=== PATIENT | male | born 1955 | race Caucasian/White ===

== ENCOUNTER → 2017-07-16 | Outpatient (CLI) | payer OTHER ==
--- NOTE | 2017-07-17 09:12 | RADIOLOGY REPORT (SQ) ---
EXAM DESCRIPTION: MRI LUMBAR SPINE WITHOUT COMPLETED DATE/TIME: 07/16/2017 6:23 pm REASON FOR STUDY: LUMBAGO WITH SCIATICA, RIGHT SIDE M54.41 LUMBAGO WITH SCIATICA, RIGHT SIDE COMPARISON: None. TECHNIQUE: Sagittal and Axial imaging includes T1, T2, STIR and gradient echo sequences. Coronal T2/ HASTE imaging. LIMITATIONS: None. FINDINGS: VISUALIZED UPPER ABDOMEN: Limited evaluation. No acute or suspicious findings suggested. SEGMENTATION: No transitional anatomy. The lowest well-developed disc space is labeled L5-S1. ALIGNMENT: Anatomic. VERTEBRAE: Mild 25% subacute upper endplate compression of L1, with edema paralleling the upper endpl ate. BONE MARROW: No marrow replacement process worrisome for metastatic disease. DISC SIGNAL: Diffuse decreased T2 weighted intervertebral disc signal. Disc space loss of height at L3-4 POSTERIOR ELEMENTS: Generally intact. No pars defect evident. HARDWARE: None in the spine. CORD AND CONUS: Normal in size and signal intensity. Conus at the L1 level. SOFT TISSUES: No aortic aneurysm seen. No bulky retroperitoneal adenopathy or mass. No paraspinal mas s or fluid. T12-L1: No central or foraminal stenosis L1-L2: No central or foraminal stenosis. Mild bilateral facet hypertrophy. L2-L3: Mild posterior disc bulging, moderate bilateral facet and ligament hypertrophy. No central st enosis. Mild bilateral inferior foraminal narrowing without definite exiting L2 nerve root impingeme nt. L3-L4: Mild central canal stenosis results from broad diffuse disc bulge and bulky bilateral facet an d ligament hypertrophy. This is best shown on axial T2 image 24. There is moderate right and mild l eft foraminal narrowing without exiting L3 nerve root impingement. L4-L5: Moderate central canal stenosis results from broad diffuse posterior disc bulge and bulky bila teral facet and ligament hypertrophy. This is best shown on axial T2 image 31. There is moderate bi lateral inferior foraminal narrowing without definite exiting L4 nerve root impingement. L5-S1: Broad diffuse posterior disc bulging and mild bilateral facet and ligament hypertrophy. No ce ntral stenosis. Mild bilateral inferior foraminal narrowing. SACRUM: Visualized upper sacrum intact. OTHER: No other significant findings. IMPRESSION: Subacute L1 upper endplate compression deformity. Mild central canal stenosis L3-4, moderate central canal stenosis L4-5. TECHNICAL DOCUMENTATION: JOB ID: [id number] [employer]- All Rights Reserved Reading location - IP/workstation name: [email or web address]
== END ==
LOC: RAD 17:39
PROVIDERS: ATTEND Family Medicine
DX: M54.41 Lumbago with sciatica, right side (principal)
CPT/HCPCS: 72148

== ENCOUNTER 2018-08-11 04:30 | Emergency (ER) | payer OTHER, MEDICARE ==
[2018-08-11] MEDS ORDERED: RINGERS SOLUTION,LACTATED 1,000 ML IV ONE (04:59)
[2018-08-11] MEDS ORDERED: ONDANSETRON HCL INJ/PF 4 MG/2 ML SDV IV ONE (04:59)
[2018-08-11] MEDS ORDERED: FENTANYL CITRATE INJ/PF 100 MCG/2 ML AMPUL IV ONE (05:00)
[2018-08-11 06:00] LABS: HEMATOCRIT 54.1 % (37.9-51.0); HEMOGLOBIN 18.1 g/dL (13.5-17.0); MEAN CORPUSCULAR HEMOGLOBIN 30.7 pg (27.0-33.4); MEAN CORPUSCULAR HGB CONC 33.4 g/dL (32.0-36.0); MEAN CORPUSCULAR VOLUME 92 fl (80-97); RED BLOOD COUNT 5.89 10^6/uL (4.35-5.55); RED CELL DISTRIBUTION WIDTH 14.3 % (11.5-14.0); WHITE BLOOD COUNT 15.7 10^3/uL (4.0-10.5)
[2018-08-11 06:22] LABS: ABSOLUTE LYMPHOCYTES# (MANUAL) 1.3 10^3/uL (0.5-4.7); ABSOLUTE MONOCYTES # (MANUAL) 0.9 10^3/uL (0.1-1.4); ABSOLUTE NEUTROPHILS# (MANUAL) 13.5 10^3/uL (1.7-8.2); BASOPHILS % (MANUAL) 0 % (0-2); EOSINOPHILS % (MANUAL) 0 % (0-6); LYMPHOCYTES % (MANUAL) 8 % (13-45); MONOCYTES % (MANUAL) 6 % (3-13); SEGMENTED NEUTROPHILS % (MAN) 86 % (42-78); TOTAL CELLS COUNTED 100
[2018-08-11 06:23] LABS: PLATELET CLUMPS PRESENT; PLATELET COMMENT ADEQUATE; STOMATOCYTES SLIGHT
[2018-08-11 06:24] LABS: PLATELET COUNT 296 10^3/uL (150-450)
--- NOTE | 2018-08-11 07:52 | ER Document Report ---
ED General - General TRAVEL OUTSIDE OF THE [place] IN LAST 30 DAYS: No <JORDAN SPENCER - Last Filed: 08/11/18 07:52> <JALEESA PHILLIPS - Last Filed: 08/11/18 11:34> - General Chief Complaint: Nausea/Vomiting/Diarrhea Stated Complaint: VOMITING Time Seen by Provider: 08/11/18 04:48 Primary Care Provider: JIMMY ROPER MD [Primary Care Provider] - Follow up as needed Notes: Patient is a 63-year-old male presents to the emergency department for over 10 times of vomiting in the last 24 hours. Patient is denying any blood in his vomit. Patient states he also has had approximately 5 episodes of diarrhea he is denying any blood. Patient is denying any fevers. States he does have generalized abdominal pain. Patient states he cannot recall whether the vomiting or diarrhea happened prior to the abdominal pain. Patient's pain is localized in his left lower quadrant and periumbilical region. Past medical history: COPD, hypertension, hyperlipidemia Medications: Gabapentin, Cardizem, trazodone, albuterol, duloxetine Allergies: Statins Surgical history: hernia repair in 2016 (JORDAN SPENCER) - Related Data Allergies/Adverse Reactions: Vgjvate-Bmf-Nxp Reductase Inhibitor Allergy (Verified 08/11/18 05:05) Past Medical History - General Information source: Patient - Social History Smoking Status: Current Every Day Smoker Chew tobacco use (# tins/day): No Frequency of alcohol use: Occasional Drug Abuse: None Family History: Reviewed & Not Pertinent Patient has suicidal ideation: No Patient has homicidal ideation: No - Past Medical History Cardiac Medical History: Reports: Hx Hypertension Pulmonary Medical History: Reports: Hx COPD Renal/ Medical History: Denies: Hx Peritoneal Dialysis <JORDAN SPENCER - Last Filed: 08/11/18 07:52> Review of Systems - Review of Systems Constitutional: See HPI EENT: No symptoms reported Cardiovascular: No symptoms reported Respiratory: No symptoms reported Gastrointestinal: See HPI Genitourinary: No symptoms reported Male Genitourinary: No symptoms reported Musculoskeletal: No symptoms reported Skin: No symptoms reported Hematologic/Lymphatic: No symptoms reported Neurological/Psychological: No symptoms reported <JORDAN SPENCER - Last Filed: 08/11/18 07:52> Physical Exam <JORDAN SPENCER - Last Filed: 08/11/18 07:52> - Vital signs Vitals: Temp Pulse Resp BP Pulse Ox 98.2 F 122 H 28 H 148/100 H 99 08/11/18 04:39 08/11/18 04:39 08/11/18 04:39 08/11/18 04:39 08/11/18 04:39 - Notes Notes: GENERAL: Alert, interacts well. HEAD: Normocephalic, atraumatic. EYES: Pupils equal, round, and reactive to light. Extraocular movements intact. ENT: Oral mucosa moist, tongue midline. NECK: Full range of motion. Supple. Trachea midline. LUNGS: Clear to auscultation bilaterally, no wheezes, rales, or rhonchi. No respiratory distress. HEART: Regular rate and rhythm. No murmur ABDOMEN: Soft, Non-distended. Bowel sounds present in all 4 quadrants. Generalized periumbilical and left lower quadrant pain noted. No McBurney's point tenderness, no Hobbs sign noted. EXTREMITIES: Moves all 4 extremities spontaneously. No edema, normal radial and dorsalis pedis pulses bilaterally. No cyanosis. BACK: no cervical, thoracic, lumbar midline tenderness. No saddle anesthesia, normal distal neurovascular exam. NEUROLOGICAL: Alert and oriented x3. Normal speech. cranial nerves II through XII grossly intact PSYCH: Normal affect, normal mood. SKIN: Warm, dry, normal turgor. No rashes or lesions noted. (JORDAN SPENCER) Course - Laboratory Result Diagrams: 08/11/18 05:25 08/11/18 05:25 <JORDAN SPENCER - Last Filed: 08/11/18 07:52> - Laboratory Result Diagrams: 08/11/18 05:25 08/11/18 07:20 <JALEESA PHILLIPS - Last Filed: 08/11/18 11:34> - Re-evaluation Re-evalutation: 08/11/18 07:52 Patient is a 63-year-old male department for vomiting and diarrhea for the last 24 hours. He does present tachypneic and tachycardic. Initial labs reveal leukocytosis of 15.7. Hemoglobin and hematocrit elevated at 18.1 and 54.1 respectively. This could be due to his every day smoking habit or dehydration. Due to patient's leukocytosis and left lower quadrant abdominal pain CT imaging ordered. Currently awaiting chemistry results which has been hemolyzed twice and currently pending. Also awaiting CT imaging results. Patient care and report transferred to Antonia Cameron at shift change. (JORDAN SPENCER) 08/11/18 10:08 Patient is an afebrile, well-hydrated, 63-year-old male who presents to the emergency with nausea/vomiting/diarrhea, suspect viral. Vitals are currently acceptable without significant tachycardia, tachypnea, or hypoxia. PE is otherwise unremarkable. Patient states he is currently feeling much better and is asymptomatic. He has not had any episodes of emesis or diarrhea throughout his stay. Labs are acceptable. CT scan was unremarkable for any acute patholog y. He is nontoxic-appearing and is able to tolerate p.o. without difficulty at this time. We will still check his urine, but allow for discharge home and will call with any issues. No further labs or imaging warranted. Low suspicion/risk for acute appendicitis, bowel obstruction, acute cholecystitis, perforated diverticulitis, incarcerated hernia, pancreatitis, perforated ulcer, peritonitis, sepsis, testicular torsion, or other systemic emergent condition at this time. Patient is aware that his condition can change from initial presentation and he needs to monitor symptoms closely and seek medical attention if any acute changes. Rx for zofran. Conservative measures otherwise for sympt oms. Recheck with PCM in 2-3 days. Consider consult with a shale processing technician. Return to the ED with any worsening/concerning symptoms otherwise as reviewed in discharge. Patient is in agreement. Reviewed with Dr. Dumont who is in agreement with dispo/plan. (JALEESA PHILLIPS) - Vital Signs Vital signs: Temp Pulse Resp BP Pulse Ox 98.0 F 122 H 18 167/109 H 94 08/11/18 04:52 08/11/18 04:39 08/11/18 09:07 08/11/18 09:07 08/11/18 09:07 - Laboratory Laboratory results interpreted by ak: 08/11/18 08/11/18 05:25 07:20 WBC 15.7 H RBC 5.89 H Hgb 18.1 H Hct 54.1 H RDW 14.3 H Seg Neuts % (Manual) 86 H Lymphocytes % (Manual) 8 L Abs Neuts (Manual) 13.5 H BUN 21 H Glucose 159 H Alkaline Phosphatase 135 H Discharge <JORDAN SPENCER - Last Filed: 08/11/18 07:52> <JALEESA PHILLIPS - Last Filed: 08/11/18 11:34> - Discharge Clinical Impression: Nausea vomiting and diarrhea Condition: Stable Disposition: HOME, SELF-CARE Instructions: Diarrhea, Nonspecific ([facility]), Vomiting ([facility]), Antinausea Medication ([facility]) Additional Instructions: Maintain adequate fluid and food intake Wilcox diet ([employer] Bananas, rice, apples, toast, etc Zofran as needed tylenol if needed Monitor for any worsening symptoms Make sure you are staying hydrated enough to urinate and have normal BM's Recheck with your PCM in 2-3 days Consider consult with Gastroenterology for ongoing/worsening symptoms Return to the ED with any worsening symptoms and/or development of fever, headache, chest pain, palpitations, syncope, shortness of breath, trouble br eathing, abdominal pain, n/v/d, blood in stool/urine, weakness, or other worsening symptoms that are concerning to you. Prescriptions: Ondansetron [Zofran Odt 4 mg Tablet] 1 - 2 tab PO Q4H PRN #15 tab.rapdis PRN Reason: For Nausea/Vomiting Forms: Elevated Blood Pressure, Smoking Cessation Education Referrals: JIMMY ROPER MD [Primary Care Provider] - 08/13/18 KOLE GARRETT MD [ACTIVE STAFF] - Follow up as needed
[2018-08-11 08:05] LABS: ALANINE AMINOTRANSFERASE 35 U/L (21-72); ALBUMIN 4.2 g/dL (3.5-5.0); ALKALINE PHOSPHATASE 135 U/L (38-126); ANION GAP 16 (5-19); ASPARTATE AMINO TRANSFERASE 24 U/L (17-59); BILIRUBIN,DIRECT 0.3 mg/dL (0.0-0.4); BILIRUBIN,TOTAL 0.6 mg/dL (0.2-1.3); BLOOD UREA NITROGEN 21 mg/dL (7-20); CALCIUM 9.9 mg/dL (8.4-10.2); CARBON DIOXIDE 25 mmol/L (22-30); CHLORIDE 100 mmol/L (98-107); GLUCOSE 159 mg/dL (75-110); LIPASE 28.3 U/L (23-300); POTASSIUM 4.3 mmol/L (3.6-5.0); TOTAL PROTEIN 7.1 g/dL (6.3-8.2)
[2018-08-11] MEDS ORDERED: DICYCLOMINE HCL INJ 20 MG/2 ML AMPULE IM ONE (08:23)
[2018-08-11] MEDS ORDERED: MORPHINE SULFATE 10 MG/ML INJ IV ONE (08:23)
[2018-08-11] MEDS ORDERED: METOCLOPRAMIDE HCL INJ/PF 10 MG/2 ML SDV IV ONE (08:24)
[2018-08-11] MEDS: NORMAL SALINE 1000 ML 1,000 ML IV PRN ×2 (09:02→09:08)
--- NOTE | 2018-08-11 09:12 | RADIOLOGY REPORT (SQ) ---
EXAM DESCRIPTION: CT ABD/PELVIS WITH IV ONLY COMPLETED DATE/TIME: 08/11/2018 8:43 am REASON FOR STUDY: perumbilical pain/LLQ COMPARISON: None. TECHNIQUE: CT scan of the abdomen and pelvis performed using helical scanning technique with dynamic intravenous contrast injection. No oral contrast. Images reviewed with lung, soft tissue, and bone windows. Reconstructed coronal and sagittal MPR images reviewed. Delayed images for evaluation of the urinary system also acquired. All images stored on PACS. All CT scanners at this facility use dose modulation, iterative reconstruction, and/or weight based d osing when appropriate to reduce radiation dose to as low as reasonably achievable (ALARA). [facility]: Dose Right [facility]: CareDose [facility]: Dose Right [facility]: Teradose 4D [facility]: Shoette CONTRAST TYPE AND DOSE: contrast/concentration: Isovue 350.00 mg/ml; Total Contrast Delivered: 99.0 ml; Total Saline Delivered: 41.0 ml RENAL FUNCTION: GFR > 60. RADIATION DOSE: CT Rad equipment meets quality standard of care and radiation dose reduction techniq ues were employed. CTDIvol: 20.3 - 21.0 mGy. DLP: 2345 mGy-cm.. LIMITATIONS: None. FINDINGS: LOWER CHEST: No significant findings. No nodules or infiltrates. LIVER: Normal size. No masses. No dilated ducts. Hepatic steatosis. SPLEEN: Normal size. No focal lesions. PANCREAS: No masses. No significant calcifications. No adjacent inflammation or peripancreatic fluid collections. Pancreatic duct not dilated. GALLBLADDER: No identified stones by CT criteria. No inflammatory changes to suggest cholecystitis. ADRENAL GLANDS: No significant masses or asymmetry. RIGHT KIDNEY AND URETER: No solid masses. No significant calcifications. No hydronephrosis or hyd roureter. LEFT KIDNEY AND URETER: No solid masses. No significant calcifications. No hydronephrosis or hydr oureter. AORTA AND VESSELS: No aneurysm. No dissection. Renal arteries, SMA, celiac without stenosis. RETROPERITONEUM: No retroperitoneal adenopathy, hemorrhage or masses. BOWEL AND PERITONEAL CAVITY: The mid to distal small bowel is fluid-filled without evidence of disten tion or transition point. No masses or inflammatory changes. No free fluid or peritoneal masses. Si gmoid diverticulosis. APPENDIX: Normal. PELVIS: No mass. No free fluid. Normal bladder. ABDOMINAL WALL: No masses. No hernias. BONES: No significant or acute findings. OTHER: No other significant finding. IMPRESSION: 1. No acute CT findings to explain abdominal pain. The mid to distal small bowel is flu id-filled without distention or evidence of obstruction. 2. Diverticulosis without evidence of acute diverticulitis. 3. Normal appendix. 4. Hepatic steatosis. TECHNICAL DOCUMENTATION: JOB ID: [id number] Quality ID # [id number]: Final reports with documentation of one or more dose reduction techniques (e.g., Au tomated exposure control, adjustment of the mA and/or kV according to patient size, use of iterative reconstruction technique) 2010 [employer]- All Rights Reserved Reading location - IP/workstation name: [email or web address]
[2018-08-11 10:33] VITALS: BP 170/99
[2018-08-11 10:50] LABS: APPEARANCE,URINE CLEAR; BILIRUBIN,URINE NEGATIVE (NEGATIVE); COLOR,URINE YELLOW; GLUCOSE, URINE NEGATIVE (NEGATIVE); KETONES,URINE 20 mg/dL (NEGATIVE); LEUKOCYTE ESTERASE,URINE NEGATIVE (NEGATIVE); NITRITE,URINE NEGATIVE (NEGATIVE); PROTEIN,URINE NEGATIVE (NEGATIVE); URINE SPECIFIC GRAVITY 1.042; UROBILINOGEN,URINE NEGATIVE mg/dL (<2.0)
== END 2018-08-11 10:42 | disposition home or self-care (01) ==
LOC: ER 04:30
DX: R11.2 Nausea with vomiting, unspecified (principal); R19.7 Diarrhea, unspecified; R10.33 Periumbilical pain; R10.32 Left lower quadrant pain; F17.200 Nicotine dependence, unspecified, uncomplicated; I10 Essential (primary) hypertension; J44.9 Chronic obstructive pulmonary disease, unspecified
CPT/HCPCS: 99284; 96372; 96361; 96374; 96375; 36415; 83690; 85025; 80053; 81001; 74177; J0500; J3010; J2765; J2270; J2405; J7030; J7120